=== PATIENT | male | born 1980 | race Caucasian/White ===

== ENCOUNTER → 2020-07-30 | Outpatient (CLI) | payer OTHER | END | disposition home or self-care (01) | LOC: US 10:00 | PROVIDERS: ATTEND Urology | DX: N20.0 Calculus of kidney (principal); N44.2 Benign cyst of testis; N28.1 Cyst of kidney, acquired; N43.3 Hydrocele, unspecified ==

== ENCOUNTER → 2021-03-24 | Outpatient (CLI) | payer OTHER | END | disposition home or self-care (01) | LOC: CT 01-26 09:00 | PROVIDERS: ATTEND Urology | DX: N20.0 Calculus of kidney (principal) ==